=== PATIENT | female | born 1975 | race Caucasian/White ===

== ENCOUNTER → 2021-10-12 08:32 | Outpatient (CLI) | payer OTHER, SELFPAY ==
--- NOTE | 2021-10-12 | DI.MRI.S_ITS ---
PROCEDURE: MR HIP LT W CON INDICATIONS: LEFT HIP PAIN TECHNIQUE: After the administration of 10 mL of dilute intra-articular Gadolinium contrast, coronal STIR of the bony pelvis; coronal and oblique axial T1 spin echo with fat saturation, axial T2 fast spin echo with fat saturation, sagittal T1 spin echo with and without fat saturation of the involved hip. COMPARISON: None. FINDINGS: Image quality: Excellent. Bones and joints: Symmetric appearing mild bilateral hip joint osteoarthritic changes are seen with superior joint space narrowing and subchondral sclerosis. Prominence of superior left femoral head neck junction is seen which can be seen associated with CAM type femoral acetabular impingement. There is no marrow edema. No avascular necrosis of the femoral head. The visualized lower lumbar spine appears normally aligned. The ligamental, neck, and labral plicae appear normal where visualized. Tendons and ligaments: The gluteus medius and minimus tendinosis at the level of greater trochanter is seen, without associated muscle atrophy. The nearby proximal iliotibial band also appears intact. The iliopsoas tendon appears intact, without adjacent bursal fluid collections or evidence for impingement syndrome. The origin of the hamstring tendon is intact at the ischial tuberosity, as well as the associated sacrotuberous ligament. The straight and reflected heads of the rectus femoris muscle origin appear intact, as well as the conjoint tendon. The ligamentum teres appears intact where visualized. Labrum and cartilage: There is subtle signal abnormality involving superior anterior labrum with contrast extension concerning for focal superior anterior left hip labral tear. Soft tissues: Visualized muscles demonstrate normal bulk and internal signal. Quadratus femoris muscle demonstrates no internal edema to suggest ischiofemoral impingement. The proximal sciatic neurovascular bundle appears normal adjacent to the hamstring tendons. No free pelvic fluid. Bladder wall thickness is normal. Genitourinary structures and bowel loops appear normal where visualized. IMPRESSION: 1. Symmetric appearing mild bilateral hip joint osteoarthritis. No fracture or dislocation. No evidence of avascular necrosis of femoral head. 2. Prominence of left femoral head neck junction which can be seen associated with CAM type femoral acetabular impingement. 3. Subtle signal abnormality and contrast extension in superior anterior left hip labrum suggestive of focal labral tear. 4. Distal left gluteus medius and minimus tendinosis at the level of greater trochanter. Dictated by: Yuriy Diaz M.D. on 10/12/2021 at 10:34 Approved by: Yuriy Diaz M.D. on 10/12/2021 at 11:52
--- NOTE | 2021-10-12 | DI.RAD.S_ITS ---
PROCEDURE: FL HIP INJECTION MR/CT LT INDICATIONS: LEFT HIP PAIN TECHNIQUE: The indications, alternatives, benefits, risks, and complications of the procedure were explained to the patient. Written informed consent was obtained and placed in the chart. The hip was examined fluoroscopically with the legs fixed in slight internal rotation, and a site for needle placement chosen for entry into the hip joint from an anterior approach. Care was taken to locate the common femoral artery and vein beforehand. The skin was prepped and draped in a sterile fashion, and 1% Lidocaine infiltrated from skin down to joint capsule. A spinal needle was inserted into the joint, and a small amount of iodinated contrast media injected to confirm intra-articular placement of the needle tip. This was followed by approximately 12 mL dilute solution of a gadolinium containing MR contrast agent. The needle was removed and a dressing was applied. The patient was given postprocedural instructions and sent to the MR suite for imaging. COMPARISON: None. FINDINGS: Two AP fluoroscopic spot images demonstrates intra-articular location of injected iodinated contrast. IMPRESSION: Successful fluoroscopically guided administration of dilute Gadolinium solution into the hip joint for MR arthrogram. Dictated by: Jason Shay M.D. on 10/12/2021 at 12:27 Approved by: Jason Shay M.D. on 10/12/2021 at 12:29
== END ==
PROVIDERS: PCP Family Medicine; Referring Provider Orthopaedic Surgery Sports Medicine; Visit Provider Orthopaedic Surgery Sports Medicine
DX: M16.0 Bilateral primary osteoarthritis of hip (principal); M25.552 Pain in left hip
CPT/HCPCS: 27093; 73722; 77002

== ENCOUNTER 2024-05-08 12:33 | Day surgery (SDC) | payer OTHER, SELFPAY ==
[2024-05-08 13:12] VITALS: BP 146/89; PULSE 86; RESP 16; TEMP 36.5; O2SAT 99
[2024-05-08] MEDS: LACTATED RINGERS 1,000 ML 42 ML IV (13:21)
--- NOTE | 2024-05-08 13:43 | PM.HP.1 ---
History of Present Illness History of Present Illness Date Patient Seen: 05/08/24 Time Patient Seen: 13:43 Chief complaint: SDC Narrative: Sue is a 49-year-old woman who is here for a screening colonoscopy. She has no family history of colon cancer. No melena or hematochezia. [facility] Social History Smoking Status: Never smoker alcohol intake: current Meds Home Medications and Allergies Home Medications Medication Instructions Recorded Confirmed Type albuterol sulfate 90 mcg/actuation 90 mcg inhalation PRN PRN breathing 05/08/24 05/08/24 History aerosol inhaler bupropion HCl 300 mg 24 hr tablet, 300 mg PO DAILY 05/08/24 05/08/24 History extended release estradiol 0.75 mg/0.75 gram (0.1%) 0.75 mg transdermal DAILY 05/08/24 05/08/24 History transdermal gel packet (Divigel) progesterone micronized 100 mg 100 mg PO DAILY 05/08/24 05/08/24 History capsule Allergies Allergy/AdvReac Type Severity Reaction Status Date / Time Sulfa (Sulfonamide AdvReac HIVES Verified 11/30/19 10:00 Antibiotics) Exam Vital Signs (past 8 hours): - 05/08/24 13:12 Temperature 97.7 F Pulse Rate 86 Respiratory Rate 16 Blood Pressure 146/89 H Pulse Oximetry 99 Oxygen Delivery Method Room Air Oxygen Delivery Method Room Air Const General: healthy appearing Assessment & Plan Assessment and plan (1) Colon cancer screening: Status: Acute Plan We reviewed the risks and benefits of colonoscopy for colon cancer screening and she would like to proceed.
[2024-05-08 14:16] VITALS: BP 107/68; PULSE 66; RESP 18; TEMP 36.7; O2SAT 100
--- NOTE | 2024-05-08 14:19 | PM.OP.COLON ---
Operative Date/Time/Diagnoses Date of procedure: 05/08/24 Time of procedure: 14:19 Pre-op diagnosis: Colon cancer screening Post-op diagnosis: same Procedure & Clinicians Study performed: Colonoscopy Same procedure as scheduled: Yes Surgeon: Cameron Fairbanks Procedure Notes Procedure in detail: Surgeon: Cameron Fairbanks MD Anesthesia: Sindhu Ramirez MD Procedure: The patient was brought to the endoscopy suite, placed in left lateral decubitus position. The patient was connected to monitoring devices. A time-out was performed. Sedation was administered. Once the patient was adequately sedated, a digital rectal exam was performed and was normal. The scope was then inserted and advanced to the cecum where the appendiceal orifice was identified and photographed. The scope was then slowly withdrawn over greater than 6 minutes. The mucosa was thoroughly inspected. No abnormalities were found. The scope was retroflexed in the rectum. No abnormalities were seen. The scope was straightened and removed. The patient was awakened and brought to recovery. Scope withdrawal time: 7 minutes Sedation time: 13 minutes EBL: 0 Findings: Normal colon Post-procedure Recommendations: Colonoscopy in 10 years Disposition: PACU
[2024-05-08 14:21] VITALS: BP 100/65; PULSE 74; RESP 13; O2SAT 100
[2024-05-08 14:26] VITALS: BP 116/81; PULSE 71; RESP 14; O2SAT 100
[2024-05-08 14:31] VITALS: BP 123/83; PULSE 69; RESP 17; O2SAT 100
[2024-05-08 14:33] VITALS: BP 125/81; PULSE 68; RESP 12; TEMP 36.9; O2SAT 100
== END 2024-05-08 14:45 | disposition home or self-care (01) ==
PROVIDERS: PCP Family Medicine; Referring Provider Surgery; Visit Provider Surgery
PROC: 0DJD8ZZ Inspection of Lower Intestinal Tract, Via Natural or Artificial Opening Endoscopic (ICD-10-PCS; CPT 45378; principal; 2024-05-08 13:30)
DX: Z12.11 Encounter for screening for malignant neoplasm of colon (principal)
CPT/HCPCS: 45378